=== PATIENT | female | born 1955 | race Caucasian/White ===

== ENCOUNTER 2016-04-23 11:08 | Outpatient (CLI) | payer MEDICARE, BC, OTHER ==
--- NOTE | 2016-04-23 13:49 | OP Clinic Progress Note ---
REASON FOR VISIT: Mark Shi returns for follow up of seropositive rheumatoid arthritis at multiple sites and having failed DMARDs. She is presently on Humira every other week and doing quite well with no joint swelling, warmth, tenderness, or morning stiffness. No new deformities. No limitation of activities of daily living. She has been exercising and walking at least 3 miles a day. PAST MEDICAL HISTORY: 1. Rheumatoid arthritis. 2. Hypothyroidism. REVIEW OF SYSTEMS: No fevers, chills, sweats, chest pain, shortness of breath, cough, wheezing, nausea, vomiting, or diarrhea. PHYSICAL EXAMINATION: GENERAL: On exam, she looks well. VITAL SIGNS: T: 97, R: 18, heart rate of 80, BP: 160/81. HEENT: Sclerae are anicteric. Conjunctivae are pink. No stomatitis or glossitis. LUNGS: Clear bilaterally with no crackles or wheezing. HEART: Regular rhythm. ABDOMEN: Soft and nontender. VASCULAR: No edema or cyanosis. PERIPHERAL JOINTS: No synovitis at the DIPs, PIPs, MCPs, wrists, elbows, shoulders, hips, knees, ankles, and feet. DIAGNOSTIC STUDIES: We went over labs from the last visit. Her vitamin D was 22. Her TSH was 3.6. Other labs were unremarkable. Rheumatoid factor positive. IMPRESSION: 1. Seropositive rheumatoid arthritis of multiple sites. Doing well. No need for labs today. I will see her in 4 months. 2. High risk drug. No evidence of toxicity. 3. Hypothyroidism, stable. PLAN: I recommended Os-Barron plus vitamin D for her low vitamin D level. Thank you very much, MANDO
== END 2016-04-23 11:10 ==
LOC: RHEU 11:08
PROVIDERS: ATTEND Internal Medicine
DX: M05.79 Rheumatoid arthritis with rheumatoid factor of multiple sites without organ or systems involvement (principal); Z51.81 Encounter for therapeutic drug level monitoring; Z79.899 Other long term (current) drug therapy
CPT/HCPCS: 99214; G0463

== ENCOUNTER 2016-08-20 09:06 | Outpatient (CLI) | payer MEDICARE, BC, OTHER ==
--- NOTE | 2016-08-20 14:28 | OP Clinic Progress Note ---
REASON FOR VISIT: Mark Shi returns for follow up of rheumatoid arthritis having failed prior disease-modifying agents. She is doing very well on Humira 40 mg subcutaneous every other week. She has no significant joint swelling, warmth, tenderness, morning stiffness or pain. Her only complaint is her nails are getting brittle and she wonders if the medication. She does get her nails done at a local salon and does get the cuticles pushed back. PAST MEDICAL HISTORY: New medical problems including hyperlipidemia and what appears to be pre- diabetes, otherwise, past medical history includes: 1. Rheumatoid arthritis. 2. Hypothyroidism. PRESENT MEDICATIONS: 1. Humira 40 mg subcutaneous every other week. 2. Simvastatin 40 mg at bedtime. 3. Levothyroxine 50 mcg daily. 4. Metformin 500 mg once a day. REVIEW OF SYSTEMS: Negative for fevers, chills, sweats, chest pain, shortness of breath, cough, wheezing, nausea, vomiting, and diarrhea. PHYSICAL EXAMINATION: VITAL SIGNS: BP: 140/70, T: 97, heart rate: 67. HEENT: Sclerae are anicteric. Conjunctivae are pink. No stomatitis or glossitis. LUNGS: Clear bilaterally with no crackles or wheezing. HEART: Regular rhythm. ABDOMEN: Soft and nontender. VASCULAR: No edema or cyanosis. PERIPHERAL JOINTS: DIPs, PIPs, MCPs, wrists, elbows, shoulders, hips, knees, ankles, and feet all show no synovitis. Good range of motion throughout. IMPRESSION: 1. Rheumatoid arthritis, stable and improved. 2. High risk drug. No evidence of drug toxicity. PLAN: No changes at this time. She had blood work 3 months ago through her PCP. She is scheduled for blood work in October. We will obtain and review those results. Thank you very much. Best regards, MANDO
== END 2016-08-20 09:07 ==
LOC: RHEU 09:06
PROVIDERS: ATTEND Internal Medicine
DX: M06.9 Rheumatoid arthritis, unspecified (principal)
CPT/HCPCS: G0463

== ENCOUNTER 2016-12-17 08:49 | Outpatient (CLI) | payer MEDICARE, BC, OTHER ==
--- NOTE | 2016-12-17 12:52 | OP Clinic Progress Note ---
REASON FOR VISIT: Mark Shi returns for follow up on her rheumatoid arthritis. She is doing well. She is having an occasional flare here and there and mainly of the hands and the wrists and the right shoulder. Otherwise, no significant morning stiffness. She has had no new deformities. No loss of use. She is doing well on Humira 40 mg subcutaneous every other week. Her nails are also improving. She stopped getting aggressive manicures. PAST MEDICAL HISTORY: 1. Hyperlipidemia. 2. Diabetes. 3. Rheumatoid arthritis. 4. Hypothyroidism. 5. Peripheral neuropathy. PRESENT MEDICATIONS: 1. Humira 40 mg subcutaneous every other week. 2. Simvastatin 40 mg at bedtime. 3. Levothyroxine 50 mcg daily. 4. Metformin 500 mg daily. REVIEW OF SYSTEMS: No fevers, chills, sweats, chest pain, shortness of breath, cough, wheezing, nausea, vomiting, or diarrhea. She has a little numbness and tingling of her feet. PHYSICAL EXAMINATION: GENERAL: On exam, she looks well. VITAL SIGNS: T: 96.9, R: 18, Heart rate of 70, BP: 120/70. HEENT: Sclerae are anicteric. Conjunctivae are pink. No stomatitis or glossitis. NECK: No cervical or supraclavicular lymph nodes. LUNGS: Clear bilaterally with no crackles or wheezing. HEART: Regular rhythm. ABDOMEN: Soft and nontender. VASCULAR: No edema or cyanosis. PERIPHERAL JOINTS: DIPs, PIPs, and MCPs are unremarkable. The right wrist is a little tender and has a little restriction in flexion and extension but documentation spec strength is well maintained. Left wrist is unremarkable. Elbows are unremarkable. She has full range of the motion of the shoulders and no pain with passive and resistant exercise. Full cervical spine flexion and extension , lateral rotation and flexion. Lumbar spine is grossly unremarkable. Thoracic spine, no kyphosis. Good range of motion of the hips, knees, ankles, and feet with no tenderness or deformities or instability. IMPRESSION: 1. Rheumatoid arthritis, active and stable. Doing well. 2. High risk drug. No evidence of drug toxicity. PLAN: 1. She is scheduled for lab work in January and we will include a CBC and a CMP. 2. I will see her back in 4 months. Thank you very much. MANDO
== END 2016-12-17 08:50 ==
LOC: RHEU 08:49
PROVIDERS: ATTEND Internal Medicine
DX: M05.9 Rheumatoid arthritis with rheumatoid factor, unspecified (principal)
CPT/HCPCS: G0463